=== PATIENT | male | born 1975 | race Caucasian/White ===

== ENCOUNTER 2025-07-12 12:28 | Emergency (ER) | payer BC, OTHER, SELFPAY ==
[2025-07-12 13:10] VITALS: BP 120/74; PULSE 60; RESP 18; TEMP 36.8; O2SAT 100; BMI 24.0
--- NOTE | 2025-07-12 13:17 | PC.NURSE ---
patient educated that ER is currently full and that we could obtain labwork via venipuncture and have him return to the lobby. patient declined labwork at this time and said he was just going to go home. at this time, the patinet is LEAVING WITHOUT BEING SEEN.
== END 2025-07-12 13:31 | disposition left against medical advice (07) ==
PROVIDERS: Emergency Provider Student in an Organized Health Care Education/Training Program; PCP Family Medicine
DX: Z53.21 Procedure and treatment not carried out due to patient leaving prior to being seen by health care provider (principal)
CPT/HCPCS: 99211; 99282